=== PATIENT | male | born 2000 | race Caucasian/White ===

== ENCOUNTER 2020-03-20 11:06 | Emergency (ER) | payer MEDICAID, SELFPAY ==
[2020-03-20 11:07] VITALS: BP 147/101; PULSE 67; RESP 18; TEMP 36.9; O2SAT 99; BMI 22.9
[2020-03-20 11:37] VITALS: BP 147/100; PULSE 76; RESP 20; O2SAT 99
--- NOTE | 2020-03-20 11:39 | HMH.EDEXTP ---
ED Disposition Clinical Impression: Bicipital tendinitis of left shoulder Disposition: Home, Self-Care Condition on Discharge: Good Instructions: DI for Shoulder Tendinopathy Prescriptions: Nabumetone 750 mg PO BID 10 Days #20 tab Transmission Status: Pending to [id number] Tizanidine HCl [Zanaflex 4mg tablet] 4 mg PO TID 10 Days #30 tab Transmission Status: Pending to [id number] Referrals: Provider,Referral, [Primary Care Provider] - - Critical Care Critical Care Time: No Attestation: On , the high probability of a clinically significant, sudden or life threatening deterioration of the following system(s) required my full and direct attention, intervention and personal management. The time I documented below is in addition to time spent performing reported procedures but includes the following listed in this critical care notation. Medical Decision Making - Medical Records Medical records reviewed: Yes: I reviewed the patient's medical records. - Zay Inquiry Pt receiving controlled substance: No - Lab Data Lab results reviewed: Yes: I reviewed the patient's lab results. Extremity Problem HPI - General Chief complaint: Extremity Injury, Upper Stated complaint: Left Shoulder pain Time Seen by Provider: 03/20/20 11:39 Mode of Arrival: Ambulatory Source of Information: Patient - History of Present Illness HPI Narrative: 1-year-old male presents with left shoulder pain.Patient denies any recent cough or shortness of breath, patient denies any sore throat or headache, patient denies any loss of taste or smell, patient denies any malaise or fatigue, patient denies any abdominal pain nausea vomiting or diarrhea. Complaint: extremity pain Onset (ago): day(s) Consistency: constant Location: left Severity scale (1-10): 5 Quality: stabbing Radiation: none Relieving factors: nothing Exacerbating factors: nothing Associated symptoms: denies other symptoms - Related Data Previous Rx's Medication Instructions Recorded Acetaminophen 1,000 mg PO TID PRN #60 tab 12/20/19 Nabumetone 750 mg PO BID 10 Days #20 tab 03/20/20 Tizanidine HCl [Zanaflex 4mg 4 mg PO TID 10 Days #30 tab 03/20/20 tablet] Allergies Allergy/AdvReac Type Severity Reaction Status Date / Time NO KNOWN ALLERGIES Allergy Uncoded 09/16/17 14:08 [facility] History - Hepatitis A Screen Attestation statement:: This patient has been screened for Hepatitis A risk factors. I have reviewed the patient's past medical history: Yes Medical History: Denies:: Diabetes Mellitus Type 1, Diabetes Mellitus Type 2 - Social History Smoking Status: Never smoker Alcohol Intake: never Occupational Status: employed ROS Obtained: Yes All systems reviewed & no additional complaints - Constitutional Constitutional: Reports system reviewed and no additional complaints, except as docu - Eyes Eyes: Reports system reviewed and no additional complaints, except as docu - ENT Ears, Nose, Mouth, and Throat: Reports system reviewed and no additional complaints, except as docu - Cardiovascular Cardiovascular: Reports system reviewed and no additional complaints, except as docu - Respiratory Respiratory: Yes system reviewed and no additional complaints, except as docu - Gastrointestinal Gastrointestingal: Reports: system reviewed and no additional complaints, except as docu - Genitourinary Male Genitourinary: Reports system reviewed and no additional complaints, except as docu Female Genitourinary: Reports system reviewed and no additional complaints, except as docu - Musculoskeletal Musculoskeletal: Reports system reviewed and no additional complaints, except as docu - Integumentary/Breasts Skin/Breast: Reports system reviewed and no additional complaints, except as docu - Neurologic Neurologic: Reports system reviewed and no additional complaints, except as docu - Endocrine Endocrine: Reports system review
[2020-03-20 12:20] VITALS: BP 128/76; PULSE 79; RESP 18; TEMP 36.8; O2SAT 98
== END 2020-03-20 12:20 | disposition home or self-care (01) ==
LOC: ER 12:48
PROVIDERS: Emergency Provider Family Medicine
DX: M75.22 Bicipital tendinitis, left shoulder (principal)
CPT/HCPCS: 20610; 96372; 99282

== ENCOUNTER 2020-07-12 15:42 | Emergency (ER) | payer MEDICAID, SELFPAY ==
[2020-07-12 16:43] VITALS: BP 114/90; PULSE 60; RESP 18; O2SAT 99; BMI 25.7
--- NOTE | 2020-07-12 17:25 | HMH.EDUTC ---
[facility] [place] Clinical Impression: Exposure to COVID-19 virus Disposition: Home, Self-Care Condition on Discharge: Good Instructions: Preventing the Spread of Coronavirus Discharge Instructions Additional Instructions: Drink plenty of fluids. Take tylenol for pain or fever. Follow up with your regular doctor. GO TO THE ER FOR ANY WORSENING SYMPTOMS FOLLOW THE DIRECTIONS ON THE COVID-19 HAND OUT THAT WE GAVE YOU REGARDING SELF-ISOLATION UNTIL YOU KNOW YOUR COVID-19 RESULTS Referrals: PCP,No [Primary Care Provider] - Time of Disposition: 17:28 Medical Decision Making - Medical Records Medical records reviewed: No: I reviewed the patient's medical records. - Zay Inquiry Pt receiving controlled substance: No Vital Signs: 07/12/20 16:43 07/12/20 17:34 Temperature 98.4 F Temperature Source Oral Pulse Rate 60 Pulse Rate [Radial] 60 Respiratory Rate 18 18 Blood Pressure 114/90 Blood Pressure [Right Arm] 114/90 Blood Pressure Mean [Right Arm] 98 Blood Pressure Source Automatic Cuff Blood Pressure Source [Right Arm] Automatic Cuff Blood Pressure Position Sitting Blood Pressure Position [Right Arm] Sitting 02 Sat by Pulse Oximetry 99 Oxygen Delivery Method Room Air Room Air Orders (Tests/Meds): ORDERS Category Date Time Status Full Resp Panel w/COVID ([facility]) Routine Lab 07/12/20 14:59 Re[place] [facility] [place] - General Stated complaint: Covid test Time Seen by Provider: 07/12/20 17:00 Mode of Arrival: Ambulatory Source of Information: Patient Limitations: No Limitations Description of Symptoms (Recalled from Triage Doc. by RN): covid test HEENT Symptoms (Recalled from RN notes): No Resp Symptoms (Recalled from RN notes): No Skin Symptoms (Recalled from RN notes): No MS Symptoms (Recalled from RN notes): No Functional Status (Recalled from RN notes): wnl - History of Present Illness Provider Complaint: He was exposed to covid at his job. He states that his exposure happened around 4 days ago. He denies any symptoms. - Related Data Previous Rx's Medication Instructions Recorded Acetaminophen 1,000 mg PO TID PRN #60 tab 12/20/19 Nabumetone 750 mg PO BID 10 Days #20 tab 03/20/20 Tizanidine HCl [Zanaflex 4mg 4 mg PO TID 10 Days #30 tab 03/20/20 tablet] Allergies Allergy/AdvReac Type Severity Reaction Status Date / Time NO KNOWN ALLERGIES Allergy Uncoded 09/16/17 14:08 - Worker's Comp Is this a Worker's Comp case?: No [facility] History - Hepatitis A Screen Drug use history?: No High risk sexual behaviors?: No History of sexually transmitted infection?: No Currently employed?: No Childcare worker?: No Do you have indoor plumbing?: Yes Do you have electricity?: Yes Attestation statement:: This patient has been screened for Hepatitis A risk factors. I have reviewed the patient's past medical history: Yes Medical History: Denies:: Diabetes Mellitus Type 1, Diabetes Mellitus Type 2 - Social History Smoking Status: Never smoker Alcohol Intake: never Occupational Status: employed Housing: house ROS Obtained: Yes All systems reviewed & no additional complaints - Constitutional Constitutional: Reports system reviewed and no additional complaints, except as docu - Eyes Eyes: Reports system reviewed and no additional complaints, except as docu - ENT Ears, Nose, Mouth, and Throat: Reports system reviewed and no additional complaints, except as docu - Cardiovascular Cardiovascular: Reports system reviewed and no additional complaints, except as docu - Respiratory Respiratory: Yes system reviewed and no additional complaints, except as docu - Gastrointestinal Gastrointestingal: Reports: system reviewed and no additional complaints, except as docu Physical Exam - General General appearance: alert, in no apparent distress - Head Head exam: atraumatic, normocephalic, normal inspection - Eye Eye exam: Present: normal appear
[2020-07-12 17:34] VITALS: BP 114/90; PULSE 60; RESP 18; TEMP 36.9; O2SAT 99
[2020-07-14 14:08] LABS: Covid-19 Nasal PCR Sendout Lex NOT DETECTED
== END 2020-07-12 17:35 | disposition home or self-care (01) ==
PROVIDERS: Emergency Provider Nurse Practitioner Family
DX: Z20.828 Contact with and (suspected) exposure to other viral communicable diseases (principal)
CPT/HCPCS: 87581; 87633; 87798; 99201; U0004

== ENCOUNTER 2021-05-17 17:20 | Emergency (ER) | payer OTHER, SELFPAY ==
[2021-05-17 17:21] VITALS: BP 131/88; PULSE 74; RESP 14; TEMP 37.1; O2SAT 97; BMI 28.5
--- NOTE | 2021-05-17 17:55 | HMH.EDUTC ---
[facility] [place] Disposition Clinical Impression: Exposure to COVID-19 virus Disposition: Home, Self-Care Condition on Discharge: Good Instructions: Preventing the Spread of Coronavirus Discharge Instructions Additional Instructions: Drink plenty of fluids. Take tylenol for pain or fever. Return if you begin to have difficulty breathing. Follow up with your regular doctor. GO TO THE ER FOR ANY WORSENING SYMPTOMS Quarantine until you know the results of your covid-19 test. If it is positive, the health department should call you and give you further instructions about your length of Quarantine and other thing. Referrals: Xander Ramsey MD [Primary Care Provider] - Forms: Work/School Release Time of Disposition: 18:02 Medical Decision Making - Medical Records Medical records reviewed: No: I reviewed the patient's medical records. - Zay Inquiry Pt receiving controlled substance: No Vital Signs: 05/17/21 17:21 05/17/21 18:07 Temperature 98.7 F 98.7 F Temperature Source Oral Pulse Rate 74 Pulse Rate [Right] 74 Respiratory Rate 14 14 Blood Pressure 131/88 Blood Pressure [Right Arm] 131/88 Blood Pressure Mean [Right Arm] 102 02 Sat by Pulse Oximetry 97 Orders (Tests/Meds): ORDERS Category Date Time Status Covid-19 Nasal PCR ([facility] [place]) Routine Lab 05/17/21 17:31 Received [facility] [place] HPI - General Stated complaint: covid test Time Seen by Provider: 05/17/21 17:55 Description of Symptoms (Recalled from Triage Doc. by RN): pt requested covid test pt has no symptoms HEENT Symptoms (Recalled from RN notes): No Resp Symptoms (Recalled from RN notes): No Skin Symptoms (Recalled from RN notes): No MS Symptoms (Recalled from RN notes): No Functional Status (Recalled from RN notes): na - History of Present Illness Provider Complaint: He was exposed to covid-19 around 3 days ago. He denies any symptoms so far, but his work wants him to be tested to be safe about things. - Related Data Previous Rx's Medication Instructions Recorded Acetaminophen 1,000 mg PO TID PRN #60 tab 12/20/19 Nabumetone 750 mg PO BID 10 Days #20 tab 03/20/20 Tizanidine HCl [Zanaflex 4mg 4 mg PO TID 10 Days #30 tab 03/20/20 tablet] Allergies Allergy/AdvReac Type Severity Reaction Status Date / Time NO KNOWN ALLERGIES Allergy Uncoded 09/16/17 14:08 - Worker's Comp Is this a Worker's Comp case?: No [facility] History - Hepatitis A Screen Drug use history?: No High risk sexual behaviors?: No History of sexually transmitted infection?: No Currently employed?: No Childcare worker?: No Do you have indoor plumbing?: No Do you have electricity?: Yes Attestation statement:: This patient has been screened for Hepatitis A risk factors. I have reviewed the patient's past medical history: Yes Medical History: Denies:: Diabetes Mellitus Type 1, Diabetes Mellitus Type 2 - Social History Smoking Status: Never smoker Alcohol Intake: never Occupational Status: employed Housing: house ROS Obtained: Yes All systems reviewed & no additional complaints - Constitutional Constitutional: Reports system reviewed and no additional complaints, except as docu - Eyes Eyes: Reports system reviewed and no additional complaints, except as docu - ENT Ears, Nose, Mouth, and Throat: Reports system reviewed and no additional complaints, except as docu - Cardiovascular Cardiovascular: Reports system reviewed and no additional complaints, except as docu - Respiratory Respiratory: Reports system reviewed and no additional complaints, except as docu - Gastrointestinal Gastrointestingal: Reports: system reviewed and no additional complaints, except as docu Physical Exam - General General appearance: alert, in no apparent distress - Head Head exam: atraumatic, normocephalic, normal inspection - Eye Eye exam: Present: normal appearance, PERRL, EOMI - ENT ENT exam: Present: normal exam, normal oropharynx, muc
[2021-05-17 18:07] VITALS: BP 131/88; PULSE 74; RESP 14; TEMP 37.1; O2SAT 97
== END 2021-05-17 18:08 | disposition home or self-care (01) ==
PROVIDERS: Emergency Provider Nurse Practitioner Family; PCP Emergency Medicine
DX: Z20.822 Contact with and (suspected) exposure to COVID-19 (principal)
CPT/HCPCS: 99202; G0463; U0003

== ENCOUNTER → 2021-06-22 14:05 | Outpatient (CLI) | payer OTHER, SELFPAY | PROVIDERS: PCP Emergency Medicine; Visit Provider Nurse Practitioner | DX: Z20.822 Contact with and (suspected) exposure to COVID-19 (principal); U07.1 COVID-19 | CPT/HCPCS: C9803; U0003; U0005 ==

== ENCOUNTER → 2021-07-03 09:21 | Outpatient (CLI) | payer OTHER, SELFPAY | PROVIDERS: PCP Emergency Medicine; Visit Provider Nurse Practitioner | DX: Z20.822 Contact with and (suspected) exposure to COVID-19 (principal) | CPT/HCPCS: C9803; U0003; U0005 ==